=== PATIENT | female | born 1985 | race Caucasian/White ===

== ENCOUNTER 2018-01-02 21:03 | Emergency (ER) | payer MEDICAID ==
[2018-01-02] MEDS: HYDROCODONE/APAP (5/325) TAB PO (21:44)
[2018-01-02] MEDS: CLINDAMYCIN 300 MG INJ IM (21:47)
== END 2018-01-02 22:45 | disposition home or self-care (01) ==
LOC: FTE 21:03
DX: N61.1 Abscess of the breast and nipple (principal)
CPT/HCPCS: 96372; 99284-25